=== PATIENT | male | born 1960 | race Caucasian/White ===

== ENCOUNTER 2021-12-25 15:11 | Outpatient (CLI) | payer BC, SELFPAY ==
[2021-12-25 21:40] LABS: Albumin* 4.7 g/dL (3.3-5.0); Chloride* 104 mmol/L (96-114)
[2021-12-25 21:41] LABS: Sodium* 141 mmol/L (135-149)
[2021-12-25 21:43] LABS: Aspartate Amino Transferase* 28 U/L (12-35); Bilirubin Total* 0.6 mg/dL (0.1-1.5); Blood Urea Nitrogen* 15 mg/dL (7-30); Carbon Dioxide* 28 mmol/L (20-32); Cholesterol* 191 mg/dL (90-199); Creatinine* 1.1 mg/dL (0.5-1.5); Estimated Glomerular Filt Rate 76 ml/min; Glucose* 85 mg/dL (60-115); Total Protein* 7.1 g/dL (6.0-8.3)
[2021-12-25 21:44] LABS: Alanine Aminotransferase* 30 U/L (4-50); Alkaline Phosphatase* 63 U/L (40-150); Calcium* 9.5 mg/dL (8.4-10.6); HDL Cholesterol* 34 mg/dL (>=40); LDL Cholesterol Calculated 114 mg/dL (<100); Triglycerides* 215 mg/dL (40-149)
[2021-12-25 22:15] LABS: PSA Screen* 1.76 ng/mL (0.10-4.00)
== END 2021-12-25 15:12 | disposition home or self-care (01) ==
PROVIDERS: PCP Family Medicine; Visit Provider Physician Assistant Medical
DX: Z00.00 Encounter for general adult medical examination without abnormal findings (principal); Z13.6 Encounter for screening for cardiovascular disorders; Z12.5 Encounter for screening for malignant neoplasm of prostate
CPT/HCPCS: 80053; 80061; 84153